=== PATIENT | female | born 1980 | race Asian ===

== ENCOUNTER 2020-09-30 14:33 | Observation (INO) | payer SELFPAY ==
[~2020-09-30] VITALS: Ht 157.5 cm; Wt 68.0 kg
[2020-09-30] MEDS ORDERED: DEXT 5%/LR + PITOCIN 20UNITS/L 1,000 ML IV PRN ×2 (14:45→19:00)
[2020-09-30] MEDS ORDERED: DEXT 5%/LR + PITOCIN 20UNITS/L 1,000 ML IV ONE (14:47)
[2020-09-30] MEDS ORDERED: LIDOCAINE HCL 1% 20ML VIAL (Pyxis) INJ INFIL SCH (15:00)
[2020-09-30] MEDS ORDERED: CARBOPROST TROMETHAMINE 250 MCG/ML AMPUL IM PRN (15:00)
[2020-09-30] MEDS ORDERED: DEXT 5%/LACTATED RINGERS 1,000 ML IV PRN (15:00)
[2020-09-30] MEDS ORDERED: MISOPROSTOL 100MCG TABLET VG SCH (15:00)
[2020-09-30] MEDS ORDERED: METHYLERGONOVINE MALEATE 0.2 MG/ML IM PRN (15:00)
[2020-09-30 15:26] LABS: HEMATOCRIT. 37.3 % (36.0-48.0); HEMOGLOBIN. 12.7 g/dL (12.0-16.0); MEAN CORPUSCULAR VOLUME 94.2 fL (81.0-99.0); PLATELET 174 x1000/uL (130-400); RED BLOOD CELL COUNT 3.96 mill/uL (4.2-5.4); RED CELL DISTRIBUTION WIDTH 13.6 % (11.6-14.6)
[2020-09-30 15:29] LABS: INR 0.9; PARTIAL THROMBOPLASTIN TIME 25.6 sec (23.4-31.0); PROTHROMBIN TIME 9.5 sec (9.6-11.0)
[2020-09-30] MEDS ORDERED: FENTANYL CITRATE/PF 50MCG/ML 2ML VIAL ONE (15:54)
[2020-09-30] MEDS ORDERED: PROPOFOL 200MG/20ML VIAL IV ONE (15:55)
[2020-09-30] MEDS ORDERED: MIDAZOLAM HCL 2 MG/2 ML VIAL ONE (15:55)
[2020-09-30] MEDS ORDERED: CEFAZOLIN SODIUM 1000MG/VIAL ONE (16:01)
[2020-09-30 16:03] LABS: HEPATITIS B SURFACE ANTIGEN NEGATIVE
[2020-09-30] MEDS ORDERED: SODIUM CHLORIDE 0.9% 10ML VIAL ONE (16:06)
[2020-09-30] MEDS ORDERED: EPHEDRINE SULFATE 50MG/ML VIAL ONE (16:06)
[2020-09-30] MEDS ORDERED: OXYTOCIN 10 UNITS/ML 1ML ONE (16:22)
[2020-09-30] MEDS ORDERED: METOCLOPRAMIDE HCL 10MG/2ML VIAL ONE (16:22)
[2020-09-30] MEDS ORDERED: ONDANSETRON HCL 4MG/2ML INJ ONE (16:22)
[2020-09-30] MEDS ORDERED: MORPHINE SULFATE 2 MG/ML CPJ (NOT FOR IM USE) IV PRN (16:30)
[2020-09-30] MEDS ORDERED: ONDANSETRON HCL 4MG/2ML INJ IV PRN (16:30)
[2020-09-30] MEDS ORDERED: MEPERIDINE HCL/PF 25MG/ML CPJ IV PRN (16:30)
[2020-09-30] MEDS ORDERED: SODIUM CHLORIDE 0.9% 1,000 ML IV ONE (16:30)
[2020-09-30] MEDS ORDERED: HYDROMORPHONE HCL/PF 2MG/ML CPJ IV PRN (16:30)
[2020-09-30] MEDS ORDERED: BENZOCAINE/LANOLIN/ALOE VERA SPRAY TOP PRN (16:45)
[2020-09-30] MEDS ORDERED: LANOLIN OINT 7GM TUBE TOP PRN (16:45)
[2020-09-30] MEDS ORDERED: IBUPROFEN 800MG TABLET PO PRN (16:45)
[2020-09-30] MEDS ORDERED: HEMORRHOIDAL SUPP PR PRN (16:45)
[2020-09-30] MEDS ORDERED: ACETAMINOPHEN WITH CODEINE 300/30MG TABLET PO PRN (16:45)
[2020-09-30] MEDS ORDERED: GLYCERIN/WITCH HAZEL LEAF MEDICATED PAD TOP PRN (16:45)
[2020-09-30] MEDS ORDERED: BISACODYL 10MG SUPP PR PRN (16:45)
[2020-09-30] MEDS ORDERED: IBUPROFEN 400MG TABLET PO PRN (16:45)
[2020-09-30] MEDS ORDERED: DEXT 5%/LR + PITOCIN 20UNITS/L 1,000 ML IV SCH (16:45)
[2020-09-30] MEDS ORDERED: DIPHENHYDRAMINE 25MG CAPSULE PO PRN (16:45)
[2020-09-30 18:08] LABS: HEMATOCRIT. 31.3 % (36.0-48.0); HEMOGLOBIN. 10.6 g/dL (12.0-16.0); MEAN CORPUSCULAR HEMOGLOBIN 32.4 pg (28.0-32.0); MEAN CORPUSCULAR VOLUME 95.9 fL (81.0-99.0); MEAN PLATELET VOLUME 8.9 fl (7.4-10.4); PLATELET 155 x1000/uL (130-400); RED BLOOD CELL COUNT 3.26 mill/uL (4.2-5.4); RED CELL DISTRIBUTION WIDTH 13.4 % (11.6-14.6)
[2020-09-30 18:20] VITALS: BP 97/57
[2020-09-30 19:22] LABS: PLATELET ESTIMATE NORMAL
[2020-09-30 19:50] VITALS: BP 95/60
[2020-09-30 20:16] LABS: PLATELET ESTIMATE NORMAL
[2020-09-30 20:20] VITALS: BP 101/60
[2020-09-30] MEDS ORDERED: DOCUSATE SODIUM 100MG CAPSULE PO SCH (21:00)
[2020-09-30 23:33] LABS: CLARITY URINE CLEAR (CLEAR); COLOR URINE YELLOW (YELLOW); KETONES URINE NEGATIVE (NEGATIVE); LEUKOCYTE ESTERASE URINE 1+ (NEGATIVE); NITRITE URINE NEGATIVE (NEGATIVE); OCCULT BLOOD URINE 3+ (NEGATIVE); PH URINE 5.5 (4.5-8.0); PROTEIN URINE NEGATIVE (NEGATIVE); SPECIFIC GRAVITY URINE 1.016 (1.005-1.030); UROBILINOGEN URINE 0.2 E.U./dL (0.2-1.0)
[2020-10-01 00:27] LABS: *AMPHETAMINES SCREEN URINE NEGATIVE (NEGATIVE); *BARBITURATES SCREEN URINE NEGATIVE (NEGATIVE); *COCAINE SCREEN URINE NEGATIVE (NEGATIVE)
[2020-10-01 00:28] LABS: METHADONE URINE SCREEN NEGATIVE (NEGATIVE); OPIATES URINE SCREEN NEGATIVE (NEGATIVE)
[2020-10-01 00:29] LABS: PHENCYCLIDINE URINE SCREEN NEGATIVE (NEGATIVE)
[2020-10-01 00:30] LABS: CANNABINOID URINE SCREEN NEGATIVE (NEGATIVE)
[2020-10-01 00:47] LABS: *BENZODIAZEPINES SCREEN URINE PRESUMTIVE POSITIVE (NEGATIVE)
[2020-10-01 03:20] VITALS: BP 90/54
[2020-10-01] MEDS ORDERED: FERROUS SULFATE 325MG TABLET PO SCH (07:30)
[2020-10-01] MEDS ORDERED: PRENATAL VIT/FE FUMARATE/FA TABLET PO SCH (09:00)
[2020-10-01 09:29] LABS: BASOPHILS % 0.2 % (0.0-2.0); HEMATOCRIT. 23.9 % (36.0-48.0); HEMOGLOBIN. 8.1 g/dL (12.0-16.0); LYMPHOCYTES % 11.9 % (20.0-50.0); MEAN CORPUSCULAR HEMOGLOBIN 32.6 pg (28.0-32.0); MEAN CORPUSCULAR VOLUME 96.5 fL (81.0-99.0); MEAN PLATELET VOLUME 8.8 fl (7.4-10.4); MONOCYTES % 4.4 % (2.0-8.0); NEUTROPHILS % 83.5 % (40.0-76.0); PLATELET 137 x1000/uL (130-400); RED BLOOD CELL COUNT 2.48 mill/uL (4.2-5.4); RED CELL DISTRIBUTION WIDTH 13.6 % (11.6-14.6)
[2020-10-05 04:09] LABS: BENZODIAZEPINES CONF GC/MS Negative (Cutoff=200)
== END 2020-10-01 12:15 | disposition home or self-care (01) ==
LOC: 8 EST LDRP 14:33 → 8EST 18:20
PROVIDERS: ADMIT Specialist; ATTEND Specialist
DX: O03.9 Complete or unspecified spontaneous abortion without complication (principal); O71.4 Obstetric high vaginal laceration alone
CPT/HCPCS: 36415; 59160; 59300; 80305; 80346; 81003; 82947; 82962; 85025; 85610; 85730; 86592; 86703; 86762; 86850; 86900; 86901; 87340; 88307; 96365; 96366; G0378; J0690; J2175; J2250; J2405; J2590; J2704; J2765; J3010; J3490; 86920; 96360; 99281